=== PATIENT | male | born 1960 | race Native Hawaiian/Other Pacific Islander ===

== ENCOUNTER 2016-09-07 13:05 | Outpatient (CLI) | payer OTHER | END 2016-09-07 19:53 | disposition home or self-care (01) | LOC: MRI 13:05 | DX: L03.114 Cellulitis of left upper limb (principal); M25.522 Pain in left elbow ==

== ENCOUNTER 2016-09-14 19:44 | Outpatient (CLI) | payer OTHER | END 2016-09-14 21:48 | disposition home or self-care (01) | LOC: INF 19:44 | DX: L03.114 Cellulitis of left upper limb (principal) | CPT/HCPCS: 96365; J3370 ==

== ENCOUNTER 2016-09-15 07:43 | Outpatient (CLI) | payer OTHER ==
[~2016-09-15] VITALS: Ht 175.3 cm; Wt 85.7 kg
[2016-09-15 08:15] VITALS: BP 130/87; TEMP 99.3
[2016-09-15 09:50] VITALS: BP 136/85; TEMP 98.7
== END 2016-09-15 23:41 | disposition home or self-care (01) ==
LOC: INF 07:43
DX: L03.114 Cellulitis of left upper limb (principal)
CPT/HCPCS: 96361; 96365; 96366; J3370

== ENCOUNTER 2016-09-16 07:42 | Outpatient (CLI) | payer OTHER ==
[~2016-09-16] VITALS: Ht 30.5 cm; Wt 0.5 kg
[2016-09-16 08:05] VITALS: BP 120/71; TEMP 98.5
[2016-09-16 11:00] VITALS: BP 121/75; TEMP 98.5
== END 2016-09-16 21:24 | disposition home or self-care (01) ==
LOC: INF 07:42
DX: L03.114 Cellulitis of left upper limb (principal)
CPT/HCPCS: 36415; 80202; 96365; 96366; J3370

== ENCOUNTER 2016-09-17 07:49 | Outpatient (CLI) | payer OTHER ==
[~2016-09-17] VITALS: Ht 175.3 cm; Wt 85.7 kg
== END 2016-09-17 21:41 | disposition home or self-care (01) ==
LOC: INF 07:49
DX: L03.114 Cellulitis of left upper limb (principal)
CPT/HCPCS: 96365; 96366; J3370

== ENCOUNTER 2016-09-18 07:42 | Outpatient (CLI) | payer OTHER ==
[~2016-09-18] VITALS: Ht 30.5 cm; Wt 0.5 kg
== END 2016-09-18 20:58 | disposition home or self-care (01) ==
LOC: INF 07:42
DX: L03.114 Cellulitis of left upper limb (principal)
CPT/HCPCS: 36415; 80202; 96365; J3370

== ENCOUNTER 2016-09-18 19:30 | Outpatient (CLI) | payer OTHER ==
[~2016-09-18] VITALS: Ht 175.3 cm; Wt 85.7 kg
== END 2016-09-18 21:10 | disposition home or self-care (01) ==
LOC: INF 19:30
DX: L03.114 Cellulitis of left upper limb (principal)

== ENCOUNTER 2016-09-19 06:36 | Outpatient (CLI) | payer OTHER ==
[~2016-09-19] VITALS: Ht 30.5 cm; Wt 0.5 kg
== END 2016-09-19 19:04 | disposition home or self-care (01) ==
LOC: INF 06:36
DX: L03.114 Cellulitis of left upper limb (principal)
CPT/HCPCS: 36415; 80202; 96365; 96366; J3370

== ENCOUNTER 2016-09-20 07:32 | Outpatient (CLI) | payer OTHER ==
[2016-09-20 08:05] VITALS: BP 115/75; TEMP 98.4
[2016-09-20 18:20] VITALS: BP 131/78; TEMP 98.7
== END 2016-09-20 22:07 | disposition home or self-care (01) ==
LOC: INF 07:32
DX: L03.114 Cellulitis of left upper limb (principal)
CPT/HCPCS: 80202; 96365; 96366; J3370

== ENCOUNTER 2016-09-21 07:53 | Outpatient (CLI) | payer OTHER ==
[~2016-09-21] VITALS: Ht 175.3 cm; Wt 85.7 kg
== END 2016-09-21 09:50 | disposition home or self-care (01) ==
LOC: INF 07:53
DX: L03.114 Cellulitis of left upper limb (principal)
CPT/HCPCS: 96365; J3370

== ENCOUNTER 2016-10-15 12:06 | Observation (INO) | payer OTHER ==
[~2016-10-15] VITALS: Ht 175.3 cm; Wt 85.3 kg
[2016-10-15 13:20] LABS: PLATELET COUNT 108 K/uL (142-355)
[2016-10-15 13:36] LABS: POTASSIUM 4.3 mmol/L (3.6-5.2); SODIUM 135 mmol/L (136-145)
[2016-10-15 15:51] VITALS: BP 103/64; TEMP 98.3; Ht 175.3 cm; Wt 85.3 kg
[2016-10-15 19:51] VITALS: BP 120/80; TEMP 97.8
[2016-10-16 00:19] VITALS: BP 157/99; TEMP 98
[2016-10-16 05:04] LABS: POTASSIUM 3.7 mmol/L (3.6-5.2); SODIUM 133 mmol/L (136-145)
[2016-10-16 05:18] LABS: PLATELET COUNT 75 K/uL (142-355)
[2016-10-16 05:31] VITALS: BP 125/74; TEMP 97.8
[2016-10-16 08:00] VITALS: BP 169/82; TEMP 97.5
[2016-10-16 12:00] VITALS: BP 131/71; TEMP 98.2
[2016-10-16 16:00] VITALS: BP 118/80; TEMP 98
[2016-10-16 20:00] VITALS: BP 119/65; TEMP 97.9
[2016-10-17 00:26] VITALS: BP 108/65; TEMP 97.5
[2016-10-17 04:00] VITALS: BP 104/67; TEMP 98
[2016-10-17 08:00] VITALS: BP 131/63; TEMP 98
== END 2016-10-17 15:23 | disposition home or self-care (01) ==
LOC: MED/SURG 12:06
PROVIDERS: ADMIT Family Medicine
DX: E86.0 Dehydration (principal); R41.82 Altered mental status, unspecified; R16.1 Splenomegaly, not elsewhere classified
CPT/HCPCS: 36415; 36600; 80053; 80074; 81000; 82140; 82550; 82607; 82805; 82948; 83735; 85027; 93005; 94640; 94664; 94760; 96360; 96361; 96372; 99220; G0378; G0379

== ENCOUNTER 2018-05-10 17:25 | Inpatient (IN) | payer OTHER ==
[~2018-05-10] VITALS: Ht 170.2 cm; Wt 89.0 kg
[2018-05-10 18:44] VITALS: BP 134/80; TEMP 100.1; Ht 170.2 cm; Wt 89.0 kg
[2018-05-10 19:54] LABS: POTASSIUM 4.1 mmol/L (3.6-5.2)
[2018-05-10 20:00] VITALS: BP 108/72; TEMP 98.9
[2018-05-10 20:01] LABS: PLATELET COUNT 93 K/uL (142-355)
[2018-05-11] VITALS (17 sets, daily range): BP systolic 107–166; BP diastolic 67–100; TEMP 97.7–99.7
[2018-05-11] MEDS ORDERED: LISI10TA11 PO (01:23)
[2018-05-11] MEDS ORDERED: FISH OIL1200 MG PO (01:27)
[2018-05-11] MEDS ORDERED: [UNRECOGNIZED DRUG - OTHER] PO (01:29)
[2018-05-11] MEDS ORDERED: OLANZAPINE PO (01:29)
[2018-05-11] MEDS ORDERED: PANTOPRAZOLE 40MG TA PO (01:34)
[2018-05-11] MEDS ORDERED: TRIA37.541 PO (01:35)
[2018-05-11] MEDS ORDERED: MOBIC7.5 M1 PO (01:36)
[2018-05-11] MEDS ORDERED: ATEN50TA36 PO (01:37)
[2018-05-11] MEDS ORDERED: CLARITIN10 M1 PO (01:39)
[2018-05-11] MEDS ORDERED: LAMICTAL200 MG PO (01:42)
[2018-05-11] MEDS ORDERED: INSUINJ47 SC (01:43)
[2018-05-11] MEDS ORDERED: NEURONTIN800 MG PO ×2 (01:46→01:47)
[2018-05-11] MEDS ORDERED: VENLAFAXINE75 M2 PO (01:48)
[2018-05-11] MEDS ORDERED: TRESIBA FL200 UNIT/M SC (01:50)
[2018-05-11] MEDS ORDERED: VENL37.511 PO (01:53)
[2018-05-11 05:50] LABS: PLATELET COUNT 87 K/uL (142-355)
[2018-05-11 05:53] LABS: POTASSIUM 3.9 mmol/L (3.6-5.2)
[2018-05-11 14:16] LABS: PLATELET COUNT 115 K/uL (142-355)
[2018-05-11 14:21] LABS: POTASSIUM 4.2 mmol/L (3.6-5.2)
[2018-05-12] VITALS (23 sets, daily range): BP systolic 97–182; BP diastolic 62–95; TEMP 97.7–98.7
[2018-05-12 06:13] LABS: PLATELET COUNT 107 K/uL (142-355)
[2018-05-12 06:38] LABS: POTASSIUM 3.8 mmol/L (3.6-5.2)
[2018-05-12 10:56] LABS: PARTIAL THROMBOPLASTIN TIME 27.2 SECONDS (24.5-33.6)
[2018-05-13] VITALS (13 sets, daily range): BP systolic 113–149; BP diastolic 60–92; TEMP 98.4–98.9
[2018-05-13 06:19] LABS: PLATELET COUNT 118 K/uL (142-355)
[2018-05-13 06:47] LABS: POTASSIUM 3.9 mmol/L (3.6-5.2)
[2018-05-14] VITALS (14 sets, daily range): BP systolic 119–157; BP diastolic 63–88; TEMP 97.7–99.3
[2018-05-14 05:40] LABS: PLATELET COUNT 119 K/uL (142-355)
[2018-05-14 05:53] LABS: POTASSIUM 3.7 mmol/L (3.6-5.2)
[2018-05-15] VITALS (26 sets, daily range): BP systolic 103–168; BP diastolic 55–103; TEMP 98–99.3
[2018-05-15 07:13] LABS: PLATELET COUNT 133 K/uL (142-355)
[2018-05-15 07:29] LABS: POTASSIUM 3.8 mmol/L (3.6-5.2)
[2018-05-16] VITALS (14 sets, daily range): BP systolic 128–165; BP diastolic 75–97; TEMP 98–99
[2018-05-16 06:39] LABS: PLATELET COUNT 142 K/uL (142-355)
[2018-05-16 06:56] LABS: POTASSIUM 3.8 mmol/L (3.6-5.2)
[2018-05-17] VITALS (7 sets, daily range): BP systolic 133–165; BP diastolic 76–94; TEMP 98.1–98.8
[2018-05-17 06:38] LABS: PLATELET COUNT 161 K/uL (142-355)
[2018-05-17 07:20] LABS: POTASSIUM 4.8 mmol/L (3.6-5.2)
[2018-05-18 04:00] VITALS: BP 153/87; TEMP 97.9
[2018-05-18 05:54] LABS: PLATELET COUNT 184 K/uL (142-355)
[2018-05-18 08:00] VITALS: BP 154/91; TEMP 97.6
[2018-05-18 12:00] VITALS: BP 151/76; TEMP 97.8
[2018-05-18 16:34] LABS: POTASSIUM 4.7 mmol/L (3.6-5.2)
== END 2018-05-18 15:47 | disposition home or self-care (01) | DRG 166 ==
LOC: MED/SURG 17:25 → ICU 05-11 15:25 → MED/SURG 05-17 11:25
PROVIDERS: ADMIT Family Medicine
PROC: 0B9J8ZX Drainage of Left Lower Lung Lobe, Via Natural or Artificial Opening Endoscopic, Diagnostic (ICD-10-PCS; principal; 2018-05-15)
PROC: 0BDB8ZX Extraction of Left Lower Lobe Bronchus, Via Natural or Artificial Opening Endoscopic, Diagnostic (ICD-10-PCS; 2018-05-15)
DX: J18.8 Other pneumonia, unspecified organism (principal); J96.01 Acute respiratory failure with hypoxia; J44.0 Chronic obstructive pulmonary disease with (acute) lower respiratory infection; I10 Essential (primary) hypertension; E11.9 Type 2 diabetes mellitus without complications; Z91.19 Patient's noncompliance with other medical treatment and regimen; I25.10 Atherosclerotic heart disease of native coronary artery without angina pectoris; I27.20 Pulmonary hypertension, unspecified; F32.9 Major depressive disorder, single episode, unspecified; J20.9 Acute bronchitis, unspecified
CPT/HCPCS: 36415; 36600; 80053; 82805; 82962; 83605; 83735; 83880; 84100; 85027; 85379; 85610; 85730; 86606; 86612; 86628; 86635; 86698; 87040; 87070; 87076; 87101; 87205; 87206; 93005; 94640; 94664; 94668; 94760; 96367; 96372; J0456; J0696; J1450; J1644; J1815; J2270; J2543; J2704; J2920; Q9963

== ENCOUNTER 2018-05-19 09:49 | Outpatient (CLI) | payer OTHER ==
[~2018-05-19 09:49] MED LIST: ATEN50TA36 PO; CLARITIN10 M1 PO; FISH OIL1200 MG PO; INSUINJ47 SC; LAMICTAL200 MG PO; LISI10TA11 PO; MOBIC7.5 M1 PO; NEURONTIN800 MG PO; OLANZAPINE PO; PANTOPRAZOLE 40MG TA PO; TRESIBA FL200 UNIT/M SC; TRIA37.541 PO; VENL37.511 PO; VENLAFAXINE75 M2 PO; [UNRECOGNIZED DRUG - OTHER] PO
== END 2018-05-19 19:39 | disposition home or self-care (01) ==
LOC: RAD 09:49
DX: Z13.820 Encounter for screening for osteoporosis (principal)

== ENCOUNTER 2018-06-21 10:41 | Outpatient (CLI) | payer OTHER | END 2018-06-21 19:20 | disposition home or self-care (01) | LOC: RESP 10:41 | DX: J18.9 Pneumonia, unspecified organism (principal) ==

== ENCOUNTER 2018-09-26 12:07 | Outpatient (CLI) | payer OTHER | END 2018-09-26 21:10 | disposition home or self-care (01) | LOC: RAD 12:07 | DX: J44.1 Chronic obstructive pulmonary disease with (acute) exacerbation (principal) ==

== ENCOUNTER 2018-10-22 13:47 | Emergency (ER) | payer OTHER ==
[~2018-10-22] VITALS: Ht 170.2 cm; Wt 88.9 kg
[2018-10-22 15:54] VITALS: BP 146/78; TEMP 98.2
== END 2018-10-22 15:55 | disposition home or self-care (01) ==
LOC: ED 13:47
DX: K80.80 Other cholelithiasis without obstruction (principal); R11.0 Nausea
CPT/HCPCS: 99283

== ENCOUNTER 2018-10-30 10:31 | Outpatient (CLI) | payer OTHER | END 2018-10-30 20:00 | disposition home or self-care (01) | LOC: RAD 10:31 | DX: R05 Cough (principal) ==

== ENCOUNTER 2018-12-11 10:15 | Outpatient (CLI) | payer OTHER | END 2018-12-11 22:59 | disposition home or self-care (01) | LOC: RAD 10:15 | DX: J40 Bronchitis, not specified as acute or chronic (principal) ==

== ENCOUNTER 2019-02-06 07:32 | Day surgery (SDC) | payer OTHER ==
[~2019-02-06] VITALS: Ht 33 cm; Wt 0.5 kg
[2019-02-06 08:11] LABS: PLATELET COUNT 92 K/uL (142-355)
[2019-02-06 08:53] LABS: POTASSIUM 4.4 mmol/L (3.6-5.2)
== END 2019-02-06 12:05 | disposition home or self-care (01) ==
LOC: OR 07:32
PROVIDERS: Student in an Organized Health Care Education/Training Program
PROC: 0FT44ZZ Resection of Gallbladder, Percutaneous Endoscopic Approach (ICD-10-PCS; principal; 2019-02-06)
DX: K81.1 Chronic cholecystitis (principal); J44.9 Chronic obstructive pulmonary disease, unspecified
CPT/HCPCS: 80053; 85027; 94664; J0132; J0330; J1100; J1170; J1885; J2001; J2250; J2405; J2704; J2710; J3010; J3490

== ENCOUNTER 2019-09-29 16:11 | Emergency (ER) | payer OTHER ==
[~2019-09-29] VITALS: Ht 175.3 cm; Wt 103.4 kg
[2019-09-29 18:45] LABS: PLATELET COUNT 111 K/uL (142-355)
[2019-09-29 18:55] LABS: POTASSIUM 4.1 mmol/L (3.6-5.2); SODIUM 122 mmol/L (136-145)
[2019-09-29 19:45] VITALS: BP 134/72; TEMP 98.2
== END 2019-09-29 19:45 | disposition home or self-care (01) ==
LOC: ED 16:11
PROVIDERS: Emergency Medicine
DX: J11.1 Influenza due to unidentified influenza virus with other respiratory manifestations (principal)
CPT/HCPCS: 36415; 80053; 84484; 85027; 87502; 94664; 96374; 99284; J2930

== ENCOUNTER 2020-05-16 09:37 | Outpatient (CLI) | payer OTHER | END 2020-05-16 23:54 | disposition home or self-care (01) | LOC: RAD 09:37 | DX: M54.17 Radiculopathy, lumbosacral region (principal) ==

== ENCOUNTER 2020-07-10 10:36 | Outpatient (CLI) | payer OTHER ==
[2020-07-10 10:49] LABS: PLATELET COUNT 99 K/uL (142-355)
== END 2020-07-10 20:21 | disposition home or self-care (01) ==
LOC: LABW 10:36
PROVIDERS: Nurse Practitioner Family
DX: E87.1 Hypo-osmolality and hyponatremia (principal)
CPT/HCPCS: 36415; 80053; 85027

== ENCOUNTER 2020-11-04 14:34 | Outpatient (CLI) | payer OTHER | END 2020-11-04 20:17 | disposition home or self-care (01) | LOC: MRI 14:34 | PROVIDERS: ATTEND Nurse Practitioner Family | DX: H81.13 Benign paroxysmal vertigo, bilateral (principal) ==

== ENCOUNTER 2020-11-06 13:19 | Outpatient (CLI) | payer OTHER ==
[2020-11-06 14:04] LABS: PLATELET COUNT 100 K/uL (142-355)
[2020-11-06 14:29] LABS: POTASSIUM 4.1 mmol/L (3.6-5.2)
== END 2020-11-06 21:53 | disposition home or self-care (01) ==
LOC: LABW 13:19
PROVIDERS: ATTEND Internal Medicine
DX: E11.9 Type 2 diabetes mellitus without complications (principal); I10 Essential (primary) hypertension; E78.2 Mixed hyperlipidemia; E66.09 Other obesity due to excess calories
CPT/HCPCS: 36415; 80053; 80061; 82043; 82248; 82570; 84439; 84443; 85027

== ENCOUNTER 2020-11-11 16:32 | Outpatient (CLI) | payer OTHER | END 2020-11-11 19:29 | disposition home or self-care (01) | LOC: RAD 16:32 | PROVIDERS: ATTEND Nurse Practitioner Family | DX: S80.12XA Contusion of left lower leg, initial encounter (principal); S90.32XA Contusion of left foot, initial encounter ==

== ENCOUNTER 2020-11-14 08:40 | Outpatient (CLI) | payer OTHER | END 2020-11-14 21:36 | disposition home or self-care (01) | LOC: US 08:40 | PROVIDERS: ATTEND Nurse Practitioner Family | DX: R60.0 Localized edema (principal) ==

== ENCOUNTER 2020-12-15 09:33 | Outpatient (CLI) | payer OTHER | END 2020-12-15 19:11 | disposition home or self-care (01) | LOC: MRI 09:33 | PROVIDERS: ATTEND Neurological Surgery | DX: M54.12 Radiculopathy, cervical region (principal) ==

== ENCOUNTER 2020-12-25 13:49 | Outpatient (CLI) | payer OTHER | END 2020-12-25 19:56 | disposition home or self-care (01) | LOC: US 13:49 | PROVIDERS: ATTEND Neurological Surgery | DX: R55 Syncope and collapse (principal) ==

== ENCOUNTER 2021-01-01 15:12 | Outpatient (CLI) | payer OTHER ==
[2021-01-01 15:44] LABS: PLATELET COUNT 94 K/uL (142-355)
[2021-01-01 15:48] LABS: POTASSIUM 3.9 mmol/L (3.6-5.2)
== END 2021-01-01 20:41 | disposition home or self-care (01) ==
LOC: LABW 15:12
PROVIDERS: ATTEND Nurse Practitioner Family
DX: Z01.818 Encounter for other preprocedural examination (principal); Z79.899 Other long term (current) drug therapy
CPT/HCPCS: 36415; 80048; 83036; 85027; 93005

== ENCOUNTER 2021-01-12 08:45 | Outpatient (CLI) | payer OTHER | END 2021-01-12 21:26 | disposition home or self-care (01) | LOC: MRI 08:45 | PROVIDERS: ATTEND Nurse Practitioner Family | DX: I73.9 Peripheral vascular disease, unspecified (principal); S76.812D Strain of other specified muscles, fascia and tendons at thigh level, left thigh, subsequent encounter; M54.17 Radiculopathy, lumbosacral region ==

== ENCOUNTER 2021-01-13 09:39 | Outpatient (CLI) | payer OTHER | END 2021-01-13 21:58 | disposition home or self-care (01) | LOC: MRI 09:39 | PROVIDERS: ATTEND Nurse Practitioner Family | DX: M54.17 Radiculopathy, lumbosacral region (principal); I73.9 Peripheral vascular disease, unspecified; S76.912D Strain of unspecified muscles, fascia and tendons at thigh level, left thigh, subsequent encounter ==

== ENCOUNTER 2021-01-29 09:16 | Outpatient (CLI) | payer OTHER | END 2021-01-29 22:20 | disposition home or self-care (01) | LOC: LABW 09:16 | PROVIDERS: ATTEND Internal Medicine | DX: E11.9 Type 2 diabetes mellitus without complications (principal) | CPT/HCPCS: 36415; 82947; 84681 ==

== ENCOUNTER 2021-02-20 10:44 | Outpatient (CLI) | payer OTHER | END 2021-02-20 23:59 | disposition home or self-care (01) | LOC: RAD 10:44 | PROVIDERS: ATTEND Neurological Surgery | DX: M54.12 Radiculopathy, cervical region (principal) ==

== ENCOUNTER 2021-04-23 07:43 | Outpatient (CLI) | payer OTHER | END 2021-04-23 19:32 | disposition home or self-care (01) | LOC: LABW 07:43 | PROVIDERS: ATTEND Internal Medicine | DX: E11.9 Type 2 diabetes mellitus without complications (principal) | CPT/HCPCS: 36415; 82947; 84681 ==

== ENCOUNTER 2021-05-04 14:16 | Outpatient (CLI) | payer OTHER ==
[~2021-05-04] VITALS: Ht 175.3 cm; Wt 102.1 kg
== END 2021-05-04 21:18 | disposition home or self-care (01) ==
LOC: INF 14:16
PROVIDERS: ATTEND Family Medicine
DX: Z23 Encounter for immunization (principal); U07.1 COVID-19
CPT/HCPCS: 96365; M0244

== ENCOUNTER 2021-09-07 10:36 | Outpatient (CLI) | payer OTHER ==
[2021-09-07 11:16] LABS: PLATELET COUNT 91 K/uL (142-355)
[2021-09-07 11:25] LABS: POTASSIUM 4.5 mmol/L (3.6-5.2)
== END 2021-09-07 18:51 | disposition home or self-care (01) ==
LOC: LABW 10:36
PROVIDERS: ATTEND Nurse Practitioner Family
DX: M25.561 Pain in right knee (principal)
CPT/HCPCS: 36415; 80048; 84550; 85027

== ENCOUNTER 2021-11-10 09:13 | Outpatient (CLI) | payer OTHER ==
[2021-11-10 09:27] LABS: PLATELET COUNT 100 K/uL (142-355)
[2021-11-10 09:45] LABS: POTASSIUM 4.2 mmol/L (3.6-5.2)
== END 2021-11-10 18:56 | disposition home or self-care (01) ==
LOC: LABW 09:13
PROVIDERS: ATTEND Nurse Practitioner Family
DX: E87.1 Hypo-osmolality and hyponatremia (principal)
CPT/HCPCS: 36415; 80053; 81000; 82150; 83690; 85027

== ENCOUNTER 2021-11-20 13:44 | Emergency (ER) | payer OTHER ==
[~2021-11-20] VITALS: Ht 175.3 cm; Wt 104.8 kg
[2021-11-20 13:45] VITALS: TEMP 98.3
[2021-11-20 14:03] LABS: PLATELET COUNT 116 K/uL (142-355)
[2021-11-20 14:11] LABS: POTASSIUM 4.3 mmol/L (3.6-5.2)
[2021-11-20 14:22] LABS: PARTIAL THROMBOPLASTIN TIME 23.4 SECONDS (24.5-33.6)
[2021-11-20 15:00] VITALS: BP 164/81
== END 2021-11-20 15:00 | disposition home or self-care (01) ==
LOC: ED 13:44
PROVIDERS: Hospitalist
DX: R07.89 Other chest pain (principal); R09.1 Pleurisy
CPT/HCPCS: 80053; 82550; 83880; 84484; 85027; 85379; 85610; 85730; 87651; 93005; 99283

== ENCOUNTER 2021-12-06 14:17 | Outpatient (CLI) | payer OTHER | END 2021-12-06 21:32 | disposition home or self-care (01) | LOC: LABW 14:17 | PROVIDERS: ATTEND Nurse Practitioner Family | DX: R80.8 Other proteinuria (principal) | CPT/HCPCS: 84156 ==

== ENCOUNTER 2022-01-18 10:41 | Outpatient (CLI) | payer OTHER ==
[2022-01-18 11:07] LABS: PLATELET COUNT 95 K/uL (142-355)
[2022-01-18 11:21] LABS: POTASSIUM 4.7 mmol/L (3.6-5.2)
== END 2022-01-18 18:53 | disposition home or self-care (01) ==
LOC: LABW 10:41 → CT 10:41 → LABW 18:53
PROVIDERS: ATTEND Nurse Practitioner Family
DX: R06.09 Other forms of dyspnea (principal); R80.8 Other proteinuria
CPT/HCPCS: 36415; 80053; 82550; 82553; 83880; 84484; 85027; 85379; 93005; Q9963

== ENCOUNTER 2022-01-20 09:15 | Outpatient (CLI) | payer OTHER | END 2022-01-20 19:15 | disposition home or self-care (01) | LOC: US 09:15 | PROVIDERS: ATTEND Nurse Practitioner Family | DX: K74.60 Unspecified cirrhosis of liver (principal) ==

== ENCOUNTER 2022-02-16 10:06 | Outpatient (CLI) | payer OTHER ==
[2022-02-16 10:34] LABS: PLATELET COUNT 121 K/uL (142-355)
[2022-02-16 11:25] LABS: POTASSIUM 6.2 mmol/L (3.6-5.2)
== END 2022-02-16 18:58 | disposition home or self-care (01) ==
LOC: LABW 10:06
PROVIDERS: ATTEND Student in an Organized Health Care Education/Training Program
DX: I12.9 Hypertensive chronic kidney disease with stage 1 through stage 4 chronic kidney disease, or unspecified chronic kidney disease (principal); N18.2 Chronic kidney disease, stage 2 (mild); D63.1 Anemia in chronic kidney disease; E11.21 Type 2 diabetes mellitus with diabetic nephropathy; R80.8 Other proteinuria; N25.81 Secondary hyperparathyroidism of renal origin; E55.9 Vitamin D deficiency, unspecified; E79.0 Hyperuricemia without signs of inflammatory arthritis and tophaceous disease; E83.39 Other disorders of phosphorus metabolism; N28.1 Cyst of kidney, acquired; R53.82 Chronic fatigue, unspecified
CPT/HCPCS: 36415; 80053; 80074; 81000; 82306; 83036; 83516; 83735; 83970; 84100; 84165; 84550; 85027; 86160; 86255; 86592; 86701; 86702; 87389

== ENCOUNTER 2022-02-23 09:55 | Outpatient (CLI) | payer OTHER ==
[2022-02-23 10:24] LABS: PLATELET COUNT 102 K/uL (142-355)
[2022-02-23 10:50] LABS: POTASSIUM 5.7 mmol/L (3.6-5.2)
== END 2022-02-23 19:14 | disposition home or self-care (01) ==
LOC: LABW 09:55
PROVIDERS: ATTEND Internal Medicine
DX: E11.9 Type 2 diabetes mellitus without complications (principal); Z79.4 Long term (current) use of insulin; E78.2 Mixed hyperlipidemia; E66.09 Other obesity due to excess calories; N18.2 Chronic kidney disease, stage 2 (mild); E87.5 Hyperkalemia; I12.9 Hypertensive chronic kidney disease with stage 1 through stage 4 chronic kidney disease, or unspecified chronic kidney disease
CPT/HCPCS: 36415; 80053; 80061; 82043; 82248; 82570; 84439; 84443; 85027

== ENCOUNTER 2022-03-09 12:53 | Outpatient (CLI) | payer OTHER ==
[2022-03-09 13:23] LABS: POTASSIUM 3.8 mmol/L (3.6-5.2)
== END 2022-03-09 18:54 | disposition home or self-care (01) ==
LOC: LABW 12:53
PROVIDERS: ATTEND Student in an Organized Health Care Education/Training Program
DX: I12.9 Hypertensive chronic kidney disease with stage 1 through stage 4 chronic kidney disease, or unspecified chronic kidney disease (principal); N18.2 Chronic kidney disease, stage 2 (mild); E11.21 Type 2 diabetes mellitus with diabetic nephropathy; D63.1 Anemia in chronic kidney disease; R80.8 Other proteinuria; N25.81 Secondary hyperparathyroidism of renal origin; E55.9 Vitamin D deficiency, unspecified; E79.0 Hyperuricemia without signs of inflammatory arthritis and tophaceous disease; D50.8 Other iron deficiency anemias; E78.2 Mixed hyperlipidemia; E11.65 Type 2 diabetes mellitus with hyperglycemia; R53.82 Chronic fatigue, unspecified
CPT/HCPCS: 36415; 80053; 80074; 81002; 82306; 82570; 83516; 83970; 84156; 84165; 86037; 86160; 86592; 86701; 86702; 87389

== ENCOUNTER 2022-03-18 16:12 | Outpatient (CLI) | payer OTHER ==
[2022-03-18 16:24] LABS: PLATELET COUNT 119 K/uL (142-355)
[2022-03-18 16:31] LABS: POTASSIUM 3.5 mmol/L (3.6-5.2)
== END 2022-03-18 19:10 | disposition home or self-care (01) ==
LOC: LABW 16:12
PROVIDERS: ATTEND Nurse Practitioner Family
DX: R42 Dizziness and giddiness (principal)
CPT/HCPCS: 36415; 80053; 85027

== ENCOUNTER 2022-07-09 11:15 | Outpatient (CLI) | payer OTHER ==
[2022-07-09 11:49] LABS: PLATELET COUNT 104 K/uL (142-355)
[2022-07-09 11:52] LABS: POTASSIUM 3.7 mmol/L (3.6-5.2)
== END 2022-07-09 19:06 | disposition home or self-care (01) ==
LOC: LABW 11:15
PROVIDERS: ATTEND Nurse Practitioner Family
DX: R80.8 Other proteinuria (principal)
CPT/HCPCS: 36415; 80053; 85027

== ENCOUNTER 2022-08-16 14:30 | Emergency (ER) | payer OTHER ==
[~2022-08-16] VITALS: Ht 175.3 cm; Wt 96.6 kg
[2022-08-16 14:35] VITALS: TEMP 99.6
[2022-08-16 15:15] LABS: PLATELET COUNT 96 K/uL (142-355)
[2022-08-16 15:29] LABS: POTASSIUM 4.8 mmol/L (3.6-5.2)
[2022-08-16 18:28] VITALS: BP 125/74
== END 2022-08-16 18:31 | disposition home or self-care (01) ==
LOC: ED 14:30
PROVIDERS: Emergency Medicine Emergency Medical Services
DX: R19.7 Diarrhea, unspecified (principal); I95.1 Orthostatic hypotension; E83.42 Hypomagnesemia
CPT/HCPCS: 36415; 80053; 81002; 83735; 84484; 85027; 87015; 87045; 87324; 87449; 87899; 93005; 96360; 96365; 99284; J3475

== ENCOUNTER 2022-10-14 14:20 | Outpatient (CLI) | payer OTHER ==
[2022-10-14 14:52] LABS: PLATELET COUNT 98 K/uL (142-355)
[2022-10-14 15:12] LABS: POTASSIUM 3.5 mmol/L (3.6-5.2)
== END 2022-10-14 20:45 | disposition home or self-care (01) ==
LOC: LABW 14:20
PROVIDERS: ATTEND Nurse Practitioner Family
DX: R53.83 Other fatigue (principal)
CPT/HCPCS: 36415; 80053; 82550; 82553; 83735; 84484; 85027; 93005

== ENCOUNTER 2022-10-17 19:07 | Inpatient (IN) | payer OTHER ==
[~2022-10-17] VITALS: Ht 175.3 cm; Wt 99.8 kg
[2022-10-17 19:10] VITALS: BP 154/73; TEMP 103.5
[2022-10-17 19:46] LABS: POTASSIUM 3.3 mmol/L (3.6-5.2)
[2022-10-17 19:48] LABS: PLATELET COUNT 108 K/uL (142-355)
[2022-10-17 19:55] LABS: PARTIAL THROMBOPLASTIN TIME 29.2 SECONDS (24.5-33.6)
[2022-10-17 21:47] VITALS: TEMP 99.8
[2022-10-18] VITALS (8 sets, daily range): BP systolic 117–164; BP diastolic 62–83; TEMP 97.6–100.5; Ht 175.3 cm; Wt 99.8 kg
[2022-10-18 05:12] LABS: POTASSIUM 3.5 mmol/L (3.6-5.2)
[2022-10-18 05:14] LABS: PLATELET COUNT 112 K/uL (142-355)
[2022-10-18] MEDS ORDERED: MECLIZINE 2525 MG PO (10:25)
[2022-10-18] MEDS ORDERED: VENLAFAXINE ER PO (10:32)
[2022-10-18] MEDS ORDERED: LIPITOR40 MG PO (10:33)
[2022-10-18] MEDS ORDERED: FLUOXETINE40 MG PO (10:34)
[2022-10-18] MEDS ORDERED: ZYPREXA ZYDI15 MG PO (10:35)
[2022-10-18] MEDS ORDERED: LISI20TA11 PO (10:36)
[2022-10-18] MEDS ORDERED: NEURONTIN800 MG PO (10:37)
[2022-10-18] MEDS ORDERED: TRULICITY4.5 MG/0.5 SC (10:39)
[2022-10-18] MEDS ORDERED: AMLODIPINE BESYLATE PO (10:40)
[2022-10-18] MEDS ORDERED: DICL75TA4 PO (10:41)
[2022-10-18] MEDS ORDERED: HYDR25TA60 PO (10:43)
[2022-10-18] MEDS ORDERED: FIASP FLEX100 UNIT/M SC (10:43)
[2022-10-18] MEDS ORDERED: SPIRONOLACT25 MG PO (10:44)
[2022-10-18] MEDS ORDERED: NOVOLOG100 UNIT/M SC (10:49)
[2022-10-19 03:32] VITALS: BP 112/53; TEMP 99.2
[2022-10-19 07:34] LABS: PLATELET COUNT 109 K/uL (142-355)
[2022-10-19 07:39] LABS: POTASSIUM 3.1 mmol/L (3.6-5.2)
[2022-10-19 08:00] VITALS: BP 122/62; TEMP 99.2
[2022-10-19 12:00] VITALS: BP 136/69; TEMP 99.5
[2022-10-19 16:00] VITALS: BP 134/68; TEMP 99.3
[2022-10-19 19:34] VITALS: BP 142/72; TEMP 99.5
[2022-10-20 00:38] VITALS: TEMP 98.4
== END 2022-10-20 01:10 | disposition short-term general hospital (02) | DRG 194 ==
LOC: ED 19:07 → MED/SURG 21:23
PROVIDERS: ADMIT Emergency Medicine; ATTEND Internal Medicine
DX: J18.8 Other pneumonia, unspecified organism (principal); E87.1 Hypo-osmolality and hyponatremia; N17.8 Other acute kidney failure; K21.9 Gastro-esophageal reflux disease without esophagitis; E11.22 Type 2 diabetes mellitus with diabetic chronic kidney disease; E11.65 Type 2 diabetes mellitus with hyperglycemia; I12.9 Hypertensive chronic kidney disease with stage 1 through stage 4 chronic kidney disease, or unspecified chronic kidney disease; N18.32 Chronic kidney disease, stage 3b; E11.42 Type 2 diabetes mellitus with diabetic polyneuropathy
CPT/HCPCS: 36415; 36600; 80048; 80053; 82550; 82805; 82947; 83880; 84300; 84484; 85027; 85379; 85610; 85730; 87015; 87040; 87045; 87324; 87449; 87502; 87635; 87899; 93005; 94664; 94760; 96365; 96375; 99284; J1650; J1815; J1885; J1956; J2060; J2930; J3260; Q9963; U0003